=== PATIENT | female | born 1980 | race Caucasian/White ===

== ENCOUNTER 2017-08-28 18:15 | Observation (INO) | payer OTHER ==
[~2017-08-28 18:15] MED LIST: IBUP-2070 PO
[2017-08-28 18:49] VITALS: BP 107/58
[2017-08-28 19:36] LABS: INFLUENZA TYPE B NEGATIVE FOR TYPE B (NEGATIVE)
[2017-08-28] MEDS ORDERED: OSELTAMIVIR PHOSPHATE 75 MG CAPSULE PO ONE (20:00)
== END 2017-08-28 20:40 | disposition home or self-care (01) ==
LOC: 4S 18:15
PROVIDERS: ADMIT Obstetrics & Gynecology; ATTEND Obstetrics & Gynecology
DX: O98.513 Other viral diseases complicating pregnancy, third trimester (principal); J11.1 Influenza due to unidentified influenza virus with other respiratory manifestations; O26.893 Other specified pregnancy related conditions, third trimester; R10.30 Lower abdominal pain, unspecified; O09.523 Supervision of elderly multigravida, third trimester; Z3A.33 33 weeks gestation of pregnancy
CPT/HCPCS: 59025; 87804; G0378

== ENCOUNTER 2017-09-03 11:05 | Observation (INO) | payer OTHER ==
[~2017-09-03] VITALS: Ht 167.6 cm; Wt 88.0 kg
[2017-09-03 11:53] VITALS: BP 87/51
== END 2017-09-03 15:15 | disposition home or self-care (01) ==
LOC: 4S 11:05
PROVIDERS: ADMIT Obstetrics & Gynecology; ATTEND Obstetrics & Gynecology
DX: O26.893 Other specified pregnancy related conditions, third trimester (principal); M79.1 Myalgia; O09.523 Supervision of elderly multigravida, third trimester; Z3A.34 34 weeks gestation of pregnancy
CPT/HCPCS: 59025; G0378

== ENCOUNTER 2017-09-05 12:10 | Observation (INO) | payer OTHER ==
[~2017-09-05] VITALS: Ht 167.6 cm; Wt 88.0 kg
[2017-09-05] MEDS ORDERED: ACET-66 PO (12:25)
[2017-09-05] MEDS ORDERED: PREN-134 PO (12:25)
[2017-09-05 12:30] VITALS: BP 118/57
[2017-09-05] MEDS ORDERED: RINGERS SOLUTION,LACTATED 1,000 ML IV ONE (13:29)
[2017-09-05] MEDS ORDERED: RINGERS SOLUTION,LACTATED 1,000 ML IV SCH (13:30)
[2017-09-05 13:59] LABS: EOSINOPHILS % (AUTO) 0.1 % (1.0-6.0); HEMOGLOBIN 10.4 g/dL (12.0-16.0); LYMPHOCYTES # (AUTO) 0.9 K/uL (1.0-4.8); LYMPHOCYTES % (AUTO) 3.9 % (22.0-44.0); MEAN CORPUSCULAR HEMOGLOBIN 31.1 pg (26.0-34.0); MEAN CORPUSCULAR HGB CONC 33.7 G/dL (31.0-37.0); MEAN CORPUSCULAR VOLUME 92 fL (80-100); MONOCYTES # (AUTO) 0.7 K/uL (0.1-1.0); MONOCYTES % (AUTO) 3.2 % (2.0-9.0); NEUTROPHILS # (AUTO) 20.7 K/uL (1.8-7.7); PLATELET COUNT (AUTO)-OB 179 K/uL (150-450); RED BLOOD CELL COUNT(AUTO) 3.36 MIL/uL (4.00-5.20); RED CELL DISTRIBUTION WIDTH 14.1 % (11.5-14.5)
[2017-09-05 14:09] LABS: NEUTROPHILS % (AUTO) 92.8 % (40.0-70.0)
[2017-09-05 14:26] LABS: ALANINE AMINOTRANSFERASE 22 U/L (12-78); ALBUMIN 2.1 g/dL (3.4-5.0); ALKALINE PHOSPHATASE 124 U/L (46-116); ANION GAP 11 mmol/L (8-16); ASPARTATE AMINOTRANSFERASE < 5 U/L (15-37); BILIRUBIN,TOTAL 0.5 mg/dL (0.1-1.0); CALCIUM, TOTAL 8.3 mg/dL (8.8-10.5); CARBON DIOXIDE 18 mmol/L (22-29); CHLORIDE 102 mmol/L (98-107); GLOMERULAR FILTR. RATE CALC > 60 mL/min (>60); GLUCOSE,RANDOM 91 mg/dL (70-110); SODIUM SERUM 131 mmol/L (136-145); TOTAL PROTEIN, SERUM 6.4 g/dL (6.4-8.2); UREA NITROGEN, BLOOD 10 mg/dL (7-18)
[2017-09-06] MEDS ORDERED: AMOX500T2 PO (13:29)
[2017-09-06] MEDS ORDERED: AZIT250T9 PO (13:31)
== END 2017-09-05 14:00 | disposition other institution (70) ==
LOC: 4S 12:10
PROVIDERS: ADMIT Obstetrics & Gynecology; ATTEND Obstetrics & Gynecology
DX: O26.893 Other specified pregnancy related conditions, third trimester (principal); R05 Cough; M54.9 Dorsalgia, unspecified; M25.512 Pain in left shoulder; O09.523 Supervision of elderly multigravida, third trimester; Z3A.34 34 weeks gestation of pregnancy
CPT/HCPCS: 36415; 59025; 71020; 80053; 85025; 87040; G0378; J7120

== ENCOUNTER 2017-09-05 14:19 | Inpatient (IN) | payer OTHER ==
[~2017-09-05] VITALS: Ht 167.6 cm; Wt 88.2 kg
[2017-09-05] MEDS: RINGERS SOLUTION,LACTATED 1,000 ML IV SCH (02:00)
[~2017-09-05 14:19] MED LIST changes: +ACET-66 PO; +PREN-134 PO
[2017-09-05] MEDS ORDERED: AZITHROMYCIN 500 MG/NS 250 ML IV ONE (14:30)
[2017-09-05] MEDS ORDERED: CefTRIAXone 1 GM/DEXTROSE 50 ML IV ONE (14:30)
[2017-09-05] MEDS ORDERED: OSELTAMIVIR PHOSPHATE 75 MG CAPSULE PO ONE (14:30)
[2017-09-05] MEDS ORDERED: SODIUM CHLORIDE 0.9% 1,000 ML IV ONE ×3 (14:30→17:15)
[2017-09-05] MEDS ORDERED: ACETAMINOPHEN 500 MG TABLET PO ONE (15:00)
[2017-09-05] MEDS ORDERED: POTASSIUM CHLORIDE 20 MEQ ER TABLET PO ONE (15:00)
[2017-09-05] MEDS ORDERED: ONDANSETRON HCL 4 MG/2 ML VIAL IVP PRN (16:15)
[2017-09-05] MEDS: ACETAMINOPHEN 325 MG TABLET PO PRN (17:17)
[2017-09-05 18:23] VITALS: BP 94/42
[2017-09-06] MEDS: RINGERS SOLUTION,LACTATED 1,000 ML IV SCH ×2 (02:00→09:59)
[2017-09-06] MEDS: ACETAMINOPHEN 325 MG TABLET PO PRN (03:55)
[2017-09-06] MEDS ORDERED: ACETAMINOPHEN 325 MG TABLET PO PRN (11:00)
[2017-09-06] MEDS ORDERED: AMOX500T2 PO (13:29)
[2017-09-06] MEDS ORDERED: AZIT250T9 PO (13:31)
== END 2017-09-06 14:20 | disposition home or self-care (01) | DRG 781 ==
LOC: EMS 14:26 → 4S 16:31 → OBSVTOIN 16:31 → INTOOBSV 16:31
PROVIDERS: ADMIT Obstetrics & Gynecology; ATTEND Obstetrics & Gynecology
DX: O99.513 Diseases of the respiratory system complicating pregnancy, third trimester (principal); Z3A.34 34 weeks gestation of pregnancy; Z91.018 Allergy to other foods; Z88.0 Allergy status to penicillin; Z91.013 Allergy to seafood
CPT/HCPCS: 59025; 83605; 96361; 96365; 96366; 96368; 96375; 99285; J0456; J0696; J2405; J7030; J7120